=== PATIENT | female | born 1985 | race Caucasian/White ===

== ENCOUNTER 2022-04-02 11:40 | Emergency (ER) | payer OTHER ==
[~2022-04-02] VITALS: Ht 157.5 cm; Wt 83.9 kg
[2022-04-02 11:49] VITALS: BP 140/79
--- NOTE | 2022-04-02 11:53 | NUR ---
PT TO WAIT IN LOBBY.
--- NOTE | 2022-04-02 11:53 | NUR ---
36 Y/O FEMALE C/O PALPITATIONS AND ANXIETY X1DAY WITH OCASSIONAL SOB. PT STATES SHE WAS RECENTLY SEEN FOR SIMILAR SYMTOMS WITH ALL TESTS UNREMARKABLE. SPO2 ON RA 97% IN TRIAGE, HR 95. DENIES N/V/D. DENIES FEVER/CHILLS. PMH: ANXIETY NKA
[2022-04-02 14:42] LABS: ALBUMIN 3.9 g/dL (3.4-5.0); ANION GAP 12.4 (8-16); CARBON DIOXIDE 27.4 mmol/L (21-32); CREATININE 0.7 mg/dL (0.6-1.3); POTASSIUM 3.8 mmol/L (3.5-5.1); THYROID STIMULATING HORMONE 3.79 uIU/mL (0.34-3.74); TOTAL BILIRUBIN 0.2 mg/dL (0.0-1.0)
[2022-04-02 15:47] LABS: BASOPHILS % (AUTO) 0.5 % (0.0-2.0); EOSINOPHILS # (AUTO) 0.2 K/uL (0-0.4); EOSINOPHILS % (AUTO) 3.5 % (0.0-4.0); HEMOGLOBIN 11.3 g/dL (12.0-16.0); LYMPHOCYTES # (AUTO) 1.9 K/uL (2.5-16.5); LYMPHOCYTES % (AUTO) 28.1 % (20.5-51.1); MEAN CORPUSCULAR HEMOGLOBIN 28 pg (27-31); MEAN CORPUSCULAR HGB CONC 33 g/dL (33-37); MEAN CORPUSCULAR VOLUME 85.3 fL (80-94); MONOCYTES # (AUTO) 0.3 K/uL (0.8-1.0); NEUTROPHILS # (AUTO) 4.2 K/uL (1.8-7.7); NEUTROPHILS % (AUTO) 62.9 % (42.2-75.2); PLATELET COUNT (AUTO) 234 K/uL (140-450); RED BLOOD CELL COUNT(AUTO) 3.99 MIL/uL (4.20-5.40); RED CELL DISTRIBUTION WIDTH 15.2 % (11.6-13.7); WHITE BLOOD COUNT (AUTO) 6.7 K/uL (4.8-10.8)
--- NOTE | 2022-04-02 16:00 | NUR ---
Patient discharged with v/s stable. Written and verbal after care instructions ABOUT PANIC ATTACK AND HYPERTHYROIDISM given and explained. Patient verbalized understanding. Ambulatory with steady gait. All questions addressed prior to discharge. Advised to follow up with PMD. PATIENT SEEN AND D/C BY MARY CARVER
== END 2022-04-02 16:00 | disposition home or self-care (01) ==
LOC: MED 11:40
DX: F41.9 Anxiety disorder, unspecified (principal); R00.2 Palpitations; R94.6 Abnormal results of thyroid function studies
CPT/HCPCS: 36415; 71045; 80053; 84443; 85025; 93005; 99285

== ENCOUNTER 2022-11-27 08:58 | Emergency (ER) | payer OTHER ==
[~2022-11-27] VITALS: Ht 157.5 cm; Wt 83.9 kg
[2022-11-27 09:03] VITALS: BP 108/66
--- NOTE | 2022-11-27 09:08 | NUR ---
PT AMBULATED TO ER BED 9
--- NOTE | 2022-11-27 09:16 | NUR ---
37/F PRESENTS TO ED WITH C/O EPIGASTRIC PAIN SINCE FRIDAY. PATIENT REPORTS PAIN CAME ON SUDDENLY, REPORTS 8/10 SHARP PAIN. STATES SHE TOOK GAS X WITH NO RELIEF, DENIES N/V BUT REPORTS EPISODES OF DIARRHEA FRIDAY AND FRIDAY THAT HAS SINCE RESOLVED. EPIGASTRIC AREA TENDER TO TOUCH, DENIES CP, SOB.
[2022-11-27] MEDS ORDERED: ALUMINUM HYD/MAG/SIMETHICONE 30 ML UDC PO ONE (09:30)
[2022-11-27] MEDS ORDERED: FAMOTIDINE 20 MG TAB PO ONE (09:30)
[2022-11-27 10:14] LABS: APPEARANCE,URINE CLEAR (CLEAR); BILIRUBIN,URINE NEGATIVE (NEGATIVE); BLOOD, URINE TRACE-I (NEGATIVE); COLOR,URINE YELLOW (YELLOW); LEUKOCYTE ESTERASE ,URINE NEGATIVE (NEGATIVE); NITRITE, URINE NEGATIVE (NEGATIVE); UGLUCOSE NEGATIVE (NEGATIVE)
[2022-11-27 10:25] LABS: RBC,URINE 0-5 /HPF (0-5); WBC,URINE 0-5 /HPF (0-5)
[2022-11-27 10:43] LABS: BASOPHILS % (AUTO) 0.4 % (0.0-2.0); EOSINOPHILS # (AUTO) 0.3 K/uL (0-0.4); HEMATOCRIT 32.4 % (36-48); HEMOGLOBIN 10.7 g/dL (12.0-16.0); LYMPHOCYTES % (AUTO) 28.3 % (20.5-51.1); MEAN CORPUSCULAR HEMOGLOBIN 28 pg (27-31); MEAN CORPUSCULAR HGB CONC 33 g/dL (33-37); MEAN CORPUSCULAR VOLUME 84.1 fL (80-94); MONOCYTES # (AUTO) 0.3 K/uL (0.8-1.0); MONOCYTES % (AUTO) 4.9 % (1.7-9.3); NEUTROPHILS # (AUTO) 4.3 K/uL (1.8-7.7); NEUTROPHILS % (AUTO) 62.4 % (42.2-75.2); PLATELET COUNT (AUTO) 233 K/uL (140-450); RED BLOOD CELL COUNT(AUTO) 3.85 MIL/uL (4.20-5.40); RED CELL DISTRIBUTION WIDTH 14.7 % (11.6-13.7)
[2022-11-27 10:58] LABS: ALBUMIN 3.7 g/dL (3.4-5.0); ANION GAP 8.7 (8-16); CARBON DIOXIDE 30.4 mmol/L (21-32); CREATININE 0.8 mg/dL (0.6-1.3); POTASSIUM 4.1 mmol/L (3.5-5.1); TOTAL BILIRUBIN 0.3 mg/dL (0.0-1.0)
[2022-11-27] MEDS ORDERED: ACET-10509 PO (11:41)
[2022-11-27] MEDS ORDERED: FAMO-90 PO (11:41)
[2022-11-27] MEDS ORDERED: ALUM355S59 PO (11:41)
[2022-11-27 12:25] VITALS: BP 102/64
--- NOTE | 2022-11-27 12:25 | NUR ---
Patient discharged with v/s stable. Written and verbal after care instructions given and explained. Patient alert, oriented and verbalized understanding of instructions. Ambulatory with steady gait. All questions addressed prior to discharge. ID band removed. Patient advised to follow up with PMD. Rx of TYLENOL EXTRA STRENGTH, MAALOX AND PEPCID given. Patient educated on indication of medication including possible reaction and side effects. Opportunity to ask questions provided and answered.
== END 2022-11-27 12:25 | disposition home or self-care (01) ==
LOC: MED 08:58
DX: R10.13 Epigastric pain (principal); Z79.899 Other long term (current) drug therapy
CPT/HCPCS: 36415; 80053; 81001; 81025; 83690; 85025; 87086; 99283